=== PATIENT | male | born 2000 | race Caucasian/White ===

== ENCOUNTER 2025-08-07 09:07 | Emergency (ER) | payer BC, SELFPAY ==
[2025-08-07 09:12] VITALS: BP 128/69
[2025-08-07 09:23] VITALS: BMI 23.1
[2025-08-07 09:28] VITALS: BP 132/74
--- NOTE | 2025-08-07 09:30 | EDRN ---
Dr. Harding in room w/ pt at this time.
--- NOTE | 2025-08-07 09:36 | ED.GENMED ---
History of Present Illness
General
Chief Complaint: Musculo-Skeletal Complaint
Time Seen by Provider: 08/07/25 09:20
History of Present Illness
History of Present Illness:
25-year-old male without significant past medical history presenting for right-sided neck pain. Patient reports that he woke up with the symptoms. Denies inciting injury or trauma. Notes limited range of motion to his neck secondary to pain.
Denies fever or infectious symptoms. Denies weakness or numbness to his extremities. Denies headache or visual changes. Denies chest pain, difficulty breathing, or additional acute medical complaints. Denies prior back injuries in the past
Phy Exam
Physical Exam
Physical Exam:
General: Well-appearing, no clinical signs of dehydration, nontoxic and in no acute distress
HEENT: protecting airway
Neck: appears supple no midline tenderness, focal tenderness to the right trapezius musculature with hypertonicity. No overlying skin changes. Range of motion grossly intact
CV: Normal heart rate, regular rhythm
Resp: No accessory muscle use, no increased work of breathing, lungs clear to auscultation bilaterally
Abd: No distention
Extremities: No deformities, no swelling, sensation intact
Neuro: alert, no focal neurologic deficit
: deferred
Rectal: deferred
Psych: Normal affect
Skin: Intact
Course
Orders/Labs/Results
Orders:
Orders
08/07/25 09:34
Cyclobenzaprine HCl [Flexeril] 10 mg PO NOW STA
Ketorolac [Toradol] 15 mg IM NOW STA
Lidocaine [Lidocaine 4% Patch] 1 patch TOPICAL ONCE ONE
Apply Lidocaine patch(s) to:: right neck
Vital Signs
Initial and Last Documented VS:
Initial Vital Signs
Temp Pulse Resp BP Pulse Ox
98.1 F 52 16 128/69 98
08/07/25 09:12 08/07/25 09:12 08/07/25 09:12 08/07/25 09:12 08/07/25 09:12
Last Documented Vital Signs
Temp Pulse Resp BP Pulse Ox
98.1 F 63 16 132/74 100
08/07/25 09:12 08/07/25 09:28 08/07/25 09:28 08/07/25 09:28 08/07/25 09:37
MDM/Problems Addressed
MDM/Problems Addressed:
25-year-old male presenting for right sided neck pain. Vital signs on arrival are normal
On exam patient resting comfortably, no acute distress or discomfort. On physical exam, focal tenderness to the right trapezius musculature with some hypertonicity. Suspect muscle spasm and muscular strain. No concerning features on exam. No
midline tenderness. No report of trauma. No focal neurologic deficits on exam. Without concern for central neurologic process. No fever or infectious symptoms, no meningismus. Range of motion grossly intact. Will treat patient therapeutically
with Toradol, lidocaine patch, cyclobenzaprine. No indication for advanced imaging. Feel stable for discharge with continued outpatient supportive therapy. Return precautions discussed and patient verbalized understanding
*Pulse Oximetry
SaO2: 100
Oxygen Mode of Delivery: Room air
Patient hypoxic: no
*Critical Care Note
Total Time (30-74mins, 75-104mins- exclusive of procedures): Not Applicable
ED Attending Note
-
Portions of this chart may have been created with voice recognition software.� Occasional wrong word or��sound alike� substitutions may have occurred due to the inherent limitations of voice recognition software.
Discharge Plan
Departure
Patient with high blood pressure during this ER visit?: No
Condition: Good
Discharge Problem:
Muscle strain, Muscle spasm
Instructions: Muscle Strain (DC), Muscle spasm - ED (DC)
Prescriptions:
New
lidocaine 4 % adhesive patch,medicated
1 patch topical BID PRN (Reason: Pain) Qty: 10 0RF
ibuprofen 600 mg tablet
600 mg PO Q8H PRN (Reason: Pain) Qty: 20 0RF
cyclobenzaprine 10 mg tablet
10 mg PO TIDPRN PRN (Reason: muscle spasm) Qty: 12 0RF
Activity Restrictions/Additional Instructions:
You were seen in the emergency department for neck pain
You are suspected to have muscle strain and spasm. Please continue to take ibuprofen for pain, heating pad for relief, muscle relaxer, and lidocaine patches. Please continue range of motion exercises
Please follow-up closely with your primary care physician.
Return to the emergency department for any worsening of your symptoms, or any development of chest pain, difficulty breathing, abdominal pain with persistent vomiting and inability to tolerate food or liquid by mouth (concern for dehydration),
weakness, headache or confusion, fever greater than 100.4, or any additional symptoms that are concerning to you.
Thank you for choosing [facility].
Interventions
Interventions:
*Risk Screen - Suicide Last Done: 08/07/25 09:12
*General Assessment Last Done: 08/07/25 09:24
*Neglect/Abuse Screening Last Done: 08/07/25 09:25
*ED- Fall Risk Assessment Last Done: 08/07/25 09:24
*ED COVID-19 Vaccine History Last Done: 08/07/25 09:24
*ED Influenza Vaccine History Last Done: 08/07/25 09:24
ED-Musculoskeletal Assessment Last Done: 08/07/25 09:25
Discharge Date and Time
Print Language: MAORI
[2025-08-07] MEDS: TORADOL 15 MG IM (10:05)
[2025-08-07] MEDS: FLEXERIL 10 MG PO (10:05)
[2025-08-07] MEDS: LIDOCAINE 4% PATCH 1 PATCH TOPICAL (10:06)
== END 2025-08-07 10:15 | disposition home or self-care (01) ==
LOC: EMR 09:07
PROVIDERS: EMERGENCY PHYSICIAN Student in an Organized Health Care Education/Training Program
DX: S16.1XXA Strain of muscle, fascia and tendon at neck level, initial encounter (principal); M62.838 Other muscle spasm; X58.XXXA Exposure to other specified factors, initial encounter
CPT/HCPCS: 96372; 99284